=== PATIENT | male | born 1935 | race Caucasian/White ===

== ENCOUNTER → 2017-05-13 | Outpatient (CLI) | payer MEDICARE, OTHER | END | disposition home or self-care (01) | LOC: CDC 08:12 | DX: Z01.810 Encounter for preprocedural cardiovascular examination (principal); N43.3 Hydrocele, unspecified; I49.1 Atrial premature depolarization | CPT/HCPCS: 93000 ==

== ENCOUNTER → 2017-06-17 | Outpatient (CLI) | payer OTHER | END | disposition home or self-care (01) | LOC: RES 08:37 | DX: C34.92 Malignant neoplasm of unspecified part of left bronchus or lung (principal) | CPT/HCPCS: 94060; 94726; 94729 ==